=== PATIENT | male | born 1955 | race Caucasian/White ===

== ENCOUNTER 2019-11-03 13:37 | Emergency (ER) | payer SELFPAY ==
[2019-11-03 13:44] VITALS: BP 149/81; PULSE 77; RESP 16; TEMP 37.2; O2SAT 98; BMI 31.6
--- NOTE | 2019-11-03 13:57 | DI.RAD.S_ITS ---
PROCEDURE: XR FINGER RT MIN 2V INDICATIONS: lac TECHNIQUE: AP hand, 2 views of the fifth finger(s) acquired. COMPARISON: None. FINDINGS: Bones: No dislocations. No suspicious bony lesions. No fracture or foreign body. Soft tissues: No suspicious soft tissue calcifications. IMPRESSION: Dressing over the fifth digit, partially obscured in clear visualization of osseous and soft tissue detail. No fracture or foreign body found. Dictated by: Souleymane Vidales M.D. on 11/03/2019 at 13:29 Approved by: Souleymane Vidales M.D. on 11/03/2019 at 13:30
[2019-11-03 17:40] VITALS: BP 156/89; PULSE 61; RESP 14; TEMP 36.7; O2SAT 97
--- NOTE | 2019-11-03 18:05 | ED_ITS ---
HPI - Wound/Laceration General Chief Complaint: Wound/Laceration Stated Complaint: RIGHT HAND LACERATION SMALL FINGER LACERATION Time Seen by Provider: 11/03/19 18:05 Source: patient Mode of arrival: Ambulatory Limitations: no limitations History of Present Illness HPI narrative: 63M nonsmoker without significant medical history presents with family friend in the chief complaint of an accidental injury to his right 5th finger. He was on his sailboat and pulling in the chain and windlass and the tip of his 5th finger got caught up in the mechanism. He suffered at finger tip injury and lost his nail as a consequence. His tetanus is current. He has full range of motion and sensation. He denies any other injury is otherwise well and free of complaint bleeding has been controlled with a bandage Related Data Previous Rx's Medication Instructions Recorded cephalexin [Keflex] 500 mg PO QID 7 Days #28 cap 11/03/19 hydrocodone-acetaminophen 1 tab PO Q4-6H PRN #10 tab 11/03/19 Allergies Allergy/AdvReac Type Severity Reaction Status Date / Time No Known Drug Allergies Allergy Verified 11/03/19 13:44 Review of Systems Constitutional Constitutional: Denies chills, Denies fatigue, Denies fever(s), Denies frequent falls, Denies lethargy and Denies weakness Eyes Eyes: Denies change in vision, Denies eye discharge, Denies irritation and Denies loss of vision ENT Ears, Nose, Mouth, and Throat: Denies change in voice, Denies dizziness, Denies neck pain, Denies sore throat and Denies throat swelling Cardiovascular Cardiovascular: Denies chest pain, Denies irregular heart rhythm, Denies lightheadedness, Denies palpitations, Denies dyspnea, Denies dyspnea on exertion and Denies orthopnea Respiratory Respiratory: Denies cough, Denies dyspnea, Denies dyspnea on exertion and Denies wheezing Gastrointestinal Gastrointestinal: Denies abdominal pain, Denies change in bowel habits, Denies diarrhea, Denies nausea and Denies vomiting Musculoskeletal Musculoskeletal: Denies neck pain and Denies numbness Integumentary/Breasts Skin/Breast: Denies pruritus, Denies erythema, Denies rash and Reports wounds Neurologic Neurologic: Denies behavioral changes, Denies confusion, Denies dizziness, Denies frequent falls, Denies loss of vision, Denies numbness and Denies weakness Psychiatric Psychiatric: Denies anxiety, Denies behavioral changes, Denies confusion, Denies depression, Denies homicidal ideation and Denies suicidal ideation Endocrine Endocrine: Denies fatigue, Denies flushing and Denies palpitations Hematologic/Lymphatic Hematologic/Lymphatic: Denies easy bruising Allergic/Immunologic Allergic/Immunologic: Denies urticaria, Denies throat swelling and Denies wheezing Patient History Social History Smoking Status: Never smoker Smoking Status: Never smoker alcohol intake frequency: 0-2 drinks per day Substance Use Type: does not use Exam Narrative Exam Narrative: GEN: AOx3 and in mild distress EYES: Pupils are equal, round, and reactive to light and accommodation. Extraoccular muscles are intact bilaterally. There is no subconjunctival hemorrhage or exudate. CHEST: Lungs are clear to auscultation bilaterally and free of wheezes, rales, o r rhonchi. Heart rate is regular rhythm, there are no murmurs, clicks, rubs, or gallops. There is no chest wall tenderness. ABD: Abdomen is soft and nontender. There is no guarding or rebound. Bowel sounds are normal in all 4 quadrants. There is no mass or organomegaly. EXT: 1 x 1 cm avulsion laceration of right 5th finger including the nail but sparing the nail bed. No bony exposure. No active bleeding Full painless ROM of all extremities with no loss of sensation or strength. SKIN: Warm, pink, and dry. No erythema or rash Initial Vital Signs Initial Vital Signs: Vital Signs Temperature 99.0 F 11/03/19 13:44 Pulse Rate 77 11/03/19 13:44 Respiratory Rate 16 11/03/19 13:44 Blood Pressure 149/81 H 11/03/19 13:44 Pulse Oximetry 98 11/03/19 13:44 Course Course Course Narrative: Wound soaked with sterile saline and Betadine, cleaned, tube gauze was placed Orders Ordered: ED Orders 11/03/19 13:57 XR finger RT min 2V Stat Vital Signs Vital signs: Vital Signs - 8 hr 11/03/19 13:44 11/03/19 17:40 Temperature 99.0 F 98.1 F Pulse Rate 77 61 Respiratory Rate 16 14 Blood Pressure 149/81 H Blood Pressure [Left Arm] 156/89 H Pulse Oximetry 98 97 MDM - Wound/Laceration Imaging Data Extremity x-ray #1: Radiologist's Impression: Manjinder Joya 63 M [address] [address] XRay Report Signed Patient: Manjinder Joya RMR#: [id number] : 5Acct:[id number] Age/Sex: 63 / MDate of Service: 11/03/19 Loc: ED Accession Number: [id number] Procedure: XR finger RT min 2V Ordering Provider: Markus Tam MD PROCEDURE: XR FINGER RT MIN 2V INDICATIONS: lac TECHNIQUE: AP hand, 2 views of the fifth finger(s) acquired. COMPARISON: None. FINDINGS: Bones: No dislocations. No suspicious bony lesions. No fracture or foreign body. Soft tissues: No suspicious soft tissue calcifications. IMPRESSION: Dressing over the fifth digit, partially obscured in clear visualization of osseous and soft tissue detail. No fracture or foreign body found. Dictated by: Souleymane Vidales M.D. on 11/03/2019 at 13:29 Approved by: Souleymane Vidales M.D. on 11/03/2019 at 13:30 Discharge Plan Departure Patient Disposition: Home Clinical Impression: Avulsion of finger Qualifiers: Encounter type: initial encounter Qualified Code(s): S61.209A - Unspecified open wound of unspecified finger without damage to nail, initial encounter Discharge Date/Time: 11/03/19 18:57 Instructions: How to Care for a Laceration After Repair Activity Restrictions/Additional Instructions: *You have been diagnosed with [avulsion laceration with nail bed involvement of right 5th finger] *What to do: *Take medications as directed: Be sure to keep copy of your paper prescription and keep the medications in the pill bottles for your air travel *Follow up with your primary care provider in 2-3 days, call for an appointment. Let them know you were seen in the Emergency Department and that we ask that you be seen in follow up *Return to ER if you should have any new, worsening or concerning symptom Prescriptions: New hydrocodone-acetaminophen 5-325 mg tablet 1 tab PO Q4-6H PRN (Reason: pain) Qty: 10 RF: 0 cephalexin [Keflex] 500 mg capsule 500 mg PO QID 7 Days Qty: 28 RF: 0
[2019-11-03 18:56] VITALS: PULSE 68; RESP 16; O2SAT 99
== END 2019-11-03 18:57 | disposition home or self-care (01) ==
PROVIDERS: Emergency Provider Emergency Medicine
DX: S61.316A Laceration without foreign body of right little finger with damage to nail, initial encounter (principal); W31.89XA Contact with other specified machinery, initial encounter; Y92.814 Boat as the place of occurrence of the external cause
CPT/HCPCS: 73140; 99283